=== PATIENT | male | born 1940 | race Caucasian/White ===

== ENCOUNTER → 2016-05-10 | Outpatient (REF) | payer OTHER ==
[~2016-05-10] MED LIST: /FEXO18TA; /WARF5TA; ALLO300T; AVAP75TA5; CARV6.25; FLON0.05; GLIP5TAB20; GLUC500T; PERC5TAB8; PROS5TAB; SIMV20TA2; THERGRAN; TRIC145T19
== END ==
LOC: M LAB REF 16:52
PROVIDERS: ATTEND Internal Medicine Nephrology
DX: D50.9 Iron deficiency anemia, unspecified (principal)

== ENCOUNTER 2016-05-23 09:35 | Outpatient (CLI) | payer OTHER ==
[~2016-05-23] VITALS: Ht 166.4 cm; Wt 114.5 kg
[~2016-05-23 09:35] MED LIST changes: +IRON SUCROSE 25 MG in NS 50 ML IV ONE
[2016-05-23] MEDS ORDERED: IRON SUCROSE 475 MG in NS 250 ML IV ONE (10:00)
[2016-05-23] MEDS ORDERED: diphenhydrAMINE 25 MG CAP PO ONE (11:00)
[2016-05-23] MEDS ORDERED: DOXY100C PO (15:01)
[2016-05-23] MEDS ORDERED: FERR150C PO (15:01)
[2016-05-23] MEDS ORDERED: INSULADS SC (15:03)
[2016-05-23] MEDS ORDERED: INSUNSD SC (15:03)
[2016-05-23] MEDS ORDERED: CLAR10CA3 PO (15:04)
[2016-05-23] MEDS ORDERED: MAGN1TAB25 PO (15:04)
[2016-05-23] MEDS ORDERED: TORS10TA3 PO (15:05)
[2016-05-23] MEDS ORDERED: OMEP40CA2 PO (15:05)
[2016-05-23] MEDS ORDERED: VITA200016 PO (15:06)
== END 2016-05-23 14:30 | disposition home or self-care (01) ==
LOC: M INFU 09:35
PROVIDERS: ATTEND Internal Medicine Nephrology
DX: D50.9 Iron deficiency anemia, unspecified (principal); Z88.8 Allergy status to other drugs, medicaments and biological substances; I48.91 Unspecified atrial fibrillation; G47.30 Sleep apnea, unspecified; F03.90 Unspecified dementia, unspecified severity, without behavioral disturbance, psychotic disturbance, mood disturbance, and anxiety; K21.9 Gastro-esophageal reflux disease without esophagitis; E78.5 Hyperlipidemia, unspecified; I10 Essential (primary) hypertension; E11.9 Type 2 diabetes mellitus without complications; M19.90 Unspecified osteoarthritis, unspecified site; M10.9 Gout, unspecified; Z79.01 Long term (current) use of anticoagulants; Z79.4 Long term (current) use of insulin; Z79.84 Long term (current) use of oral hypoglycemic drugs
CPT/HCPCS: 96365; J1756

== ENCOUNTER → 2016-06-10 | Outpatient (CLI) | payer OTHER ==
[~2016-06-10] MED LIST changes: +CLAR10CA3 PO; +DOXY100C PO; +FERR150C PO; +INSULADS SC; +INSUNSD SC; -IRON SUCROSE 25 MG in NS 50 ML IV ONE; +MAGN1TAB25 PO; +OMEP40CA2 PO; +TORS10TA3 PO; +VITA200016 PO
[2016-06-10 12:26] LABS: BASO # 0.1 K/mm3 (0.0-0.2); BASO % 0.8 % (0.0-1.0); EOS # 0.2 K/mm3 (0.0-0.50); EOS % 3.3 % (0.0-3.0); LARGE UNSTAINED CELL # 0.1 K/mm3 (0.0-0.4); LARGE UNSTAINED CELL % 1.7 % (0.0-4.0); LYMPH # 1.6 K/mm3 (1.5-4.5); LYMPH % 21.6 % (24.0-44.0); MEAN CORPUSCULAR HEMOGLOBIN 24.8 pg (27.0-33.0); MEAN CORPUSCULAR HGB CONC 30.5 g/dl (32.0-36.5); MEAN CORPUSCULAR VOLUME 81.3 fl (80.0-96.0); MONO # 0.4 K/mm3 (0.0-0.8); MONO % 5.5 % (0.0-5.0); NEUTROPHILS # 4.8 K/mm3 (1.8-7.7); NEUTROPHILS % 67.1 % (36.0-66.0); PLATELET COUNT, AUTOMATED 215 k/mm3 (150-450); RED CELL DISTRIBUTION WIDTH 18.9 % (11.5-14.5); WHITE BLOOD COUNT 7.1 K/mm3 (4.0-10.0)
== END ==
LOC: M LAB 11:48
PROVIDERS: ATTEND Internal Medicine Nephrology
DX: N18.3 Chronic kidney disease, stage 3 (moderate) (principal); D50.9 Iron deficiency anemia, unspecified

== ENCOUNTER → 2016-06-14 | Outpatient (CLI) | payer OTHER ==
--- NOTE | 2016-06-15 09:05 | REP ---
Clinical: Colon cancer. Technique: Axial noncontrast images from the thoracic inlet to the upper abdomen with coronal and sagittal re-formations. Findings: Lung davis are relatively well aerated and demonstrate chronic age-related type changes primarily involving the lower lung davis. Small scattered nodular densities are identified - some of which appear calcified and others which are noncalcified. Largest is noted along the subpleural right upper lobe (image 42). Small calcified pleural plaques at the diaphragmatic surfaces (left greater than right) and calcified granulomata suggest chronic changes. No significant acute consolidation or mass lesion. No obvious adenopathy although evaluation is limited by the lack of contrast. Mediastinum demonstrates cardiomegaly along with atherosclerotic changes to the thoracic aorta and coronary arteries. A tubular fluid filled structure measuring approximately 8 x 4 x 7 cm inseparable from the distal esophagus extending into the mid epigastrium adjacent to the stomach and gastroesophageal junction is unchanged compared to 2010. Impression: 1. Chronic pulmonary parenchymal changes along with scattered noncalcified predominantly 1-2 mm nodular densities are appreciated as well as 7 mm right upper lobe subpleural nodule. Given the patient's history of carcinoma and the lack of prior chest CT for comparison, current examination choose to be used as baseline and follow-up in 3-6 months based on clinical information may be warranted to evaluate for metastatic disease. 2. 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 Signed by Garfield Stoll MD 06/15/2016 08:56 A
--- NOTE | 2016-06-17 08:32 | REP ---
Clinical: Ascending colon cancer. Comparison: 01/22/2010. Findings: There is a somewhat irregular circumferential mural thickening to the ascending colon at the level of the hepatic flexure (images 60 - 48) having what would be a "apple core" appearance on contrast study and is most compatible with the above mentioned ascending colon cancer. Subtle adjacent mesenteric stranding and small lymph nodes measure up to approximately 8 mm. The remainder of the small large bowel is grossly unremarkable with the exception of diverticulosis. No obvious hepatic lesions are identified although evaluation is limited by the lack of contrast enhancement. Spleen demonstrates granulomatous calcifications. Pancreas and bilateral adrenal glands are normal. Right kidney appears atrophic and bilateral renal cysts are identified measuring up to 4.5 cm lower pole right kidney and 4.3 cm lower pole left kidney. 4.8 cm fat containing ventral hernia noted. Pelvis demonstrates normal bladder and prostate/seminal vesicles. No ascites. No retroperitoneal adenopathy. No obvious intra-abdominal/pelvic metastatic lesions. A chronic tubular fluid filled structure inseparable from the distal esophagus extending to the gastroesophageal junction is unchanged and may represent duplication cyst. Skeletal structures demonstrate degenerative changes without focal osseous abnormality. Impression: 1. Irregular circumferential mural thickening to the ascending colon at the hepatic flexure compatible with neoplasm. Adjacent mesenteric lymph nodes up to 8 mm are nonspecific. 2. Atrophic right kidney with bilateral renal cysts similar to prior examination. 3. 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 Signed by Garfield Stoll MD 06/17/2016 08:23 A
== END ==
LOC: M RAD 18:27
PROVIDERS: ATTEND Student in an Organized Health Care Education/Training Program
DX: C18.2 Malignant neoplasm of ascending colon (principal); D50.0 Iron deficiency anemia secondary to blood loss (chronic); D30.01 Benign neoplasm of right kidney; N28.1 Cyst of kidney, acquired

== ENCOUNTER 2016-06-28 08:34 | Emergency (ER) | payer OTHER ==
[~2016-06-28] VITALS: Ht 172.7 cm; Wt 104.3 kg
[2016-06-28] MEDS ORDERED: FINA5TAB2 (08:58)
[2016-06-28] MEDS ORDERED: FENO150C PO (08:58)
[2016-06-28] MEDS ORDERED: DOXY50CA (08:58)
[2016-06-28] MEDS ORDERED: AMIT25TA (08:58)
[2016-06-28] MEDS ORDERED: FLUT1SPR2 (08:58)
[2016-06-28] MEDS ORDERED: WARF-20 (08:58)
[2016-06-28 10:04] LABS: BASO % 0.4 % (0.0-1.0); EOS # 0.4 K/mm3 (0.0-0.50); EOS % 5.1 % (0.0-3.0); LARGE UNSTAINED CELL # 0.1 K/mm3 (0.0-0.4); LARGE UNSTAINED CELL % 1.5 % (0.0-4.0); LYMPH # 1.7 K/mm3 (1.5-4.5); LYMPH % 20.6 % (24.0-44.0); MEAN CORPUSCULAR HEMOGLOBIN 25.4 pg (27.0-33.0); MEAN CORPUSCULAR HGB CONC 31.8 g/dl (32.0-36.5); MEAN CORPUSCULAR VOLUME 79.9 fl (80.0-96.0); MONO # 0.4 K/mm3 (0.0-0.8); MONO % 5.3 % (0.0-5.0); NEUTROPHILS # 5.1 K/mm3 (1.8-7.7); NEUTROPHILS % 67.2 % (36.0-66.0); PLATELET COUNT, AUTOMATED 216 k/mm3 (150-450); RED CELL DISTRIBUTION WIDTH 18.9 % (11.5-14.5); WHITE BLOOD COUNT 7.6 K/mm3 (4.0-10.0)
[2016-06-28 10:18] LABS: INR 1.15
[2016-06-28 10:31] LABS: ALBUMIN 2.9 GM/DL (3.2-5.2); ALBUMIN/GLOBULIN RATIO 0.76 (1.00-1.93); BILIRUBIN,DIRECT 0.2 MG/DL (0.0-0.2); BILIRUBIN,TOTAL 0.3 MG/DL (0.2-1.0); CALCIUM LEVEL 9.1 MG/DL (8.8-10.2); CREATININE FOR GFR 1.98 MG/DL (0.70-1.30); GLOMERULAR FILTRATION RATE 35.1 (>42); POTASSIUM SERUM 3.9 MEQ/L (3.5-5.1); TOTAL PROTEIN 6.7 GM/DL (6.4-8.2)
--- NOTE | 2016-06-28 11:58 | REP ---
CT ABDOMEN AND PELVIS WITHOUT CONTRAST: CT abdomen and pelvis performed without oral or IV contrast. This limits the exam. Sagittal and coronal reconstruction images are performed. The patient had a recent resection of a segment of colon. Comparison is made with a prior study of 06/14/2016 The visualized lung bases demonstrate chronic fibrotic change and calcified pleural plaques. The liver demonstrates a questionable hypodense nodule in the inferior right lobe measuring 1.4 cm in diameter. Multiple calcified granulomas are seen in the spleen. A small left adrenal nodule is stable since 2008 compatible with a small adenoma. The pancreas is grossly unremarkable. There are multiple bilateral renal cysts. There is right renal atrophy. There is no hydroureteronephrosis. The urinary bladder is distended with a small amount of air likely from recent catheterization. Mild scattered free fluid is seen in the abdomen and pelvis. There is also mild intraperitoneal air, which is postsurgical. A tiny amount of air is seen in the umbilical soft tissues and there is also a small amount of focal fluid at that location measuring 3.1 x 2.4 cm. No gross bowel wall thickening is seen. Old tubular structure at the gastroesophageal junction is stable. There are scattered atherosclerotic calcifications of the abdominal aorta. There is no aneurysm. There is no pelvic mass. IMPRESSION: There has been recent resection of a portion of colon and there is mild postsurgical intraperitoneal air and mild scattered free fluid throughout the abdomen and pelvis. There is also mild air in the umbilical soft tissues with mild focal fluid in the umbilical soft tissues measuring 3.1 x 2.4 cm. Possible nodule in the inferior right lobe of the liver 1.4 cm in diameter. No other evidence of acute finding. The liver nodule could be further characterized by CT or MRI with contrast. Signed by Avtar West MD 06/28/2016 04:38 P
[2016-06-28 13:05] VITALS: BP 166/77
== END 2016-06-28 13:32 | disposition home or self-care (01) ==
LOC: EDBD 08:34 → M ED 09:15
DX: T81.89XA Other complications of procedures, not elsewhere classified, initial encounter (principal); R18.8 Other ascites; Y83.6 Removal of other organ (partial) (total) as the cause of abnormal reaction of the patient, or of later complication, without mention of misadventure at the time of the procedure; Z79.01 Long term (current) use of anticoagulants

== ENCOUNTER → 2016-07-22 | Outpatient (REF) | payer OTHER ==
[~2016-07-22] MED LIST changes: +AMIT25TA; +DOXY50CA; +FENO150C PO; +FINA5TAB2; +FLUT1SPR2; +WARF-20
[2016-07-22 14:12] LABS: INR 1.62
== END ==
LOC: M LAB REF 13:36
PROVIDERS: ATTEND Internal Medicine Medical Oncology
DX: C18.9 Malignant neoplasm of colon, unspecified (principal); Z51.89 Encounter for other specified aftercare

== ENCOUNTER → 2016-11-11 | Outpatient (REF) | payer OTHER ==
[2016-11-11 14:08] LABS: BACTERIA, URINE SMALL AMOUNT; COMPLEMENT C4 19.6 MG/DL (10-40); HYALINE CAST, URINE NONE SEEN /lpf (0-1); MICROSCOPIC EXAM PERFORMED; RBC, URINE 0-1 /hpf (0-3); SQUAMOUS EPITHELIAL CELL URINE NONE SEEN /hpf (SMALL AMT); WBC, URINE 30-40 /hpf (0-3)
== END ==
LOC: M LAB REF 12:45
PROVIDERS: ATTEND Internal Medicine Nephrology
DX: R80.9 Proteinuria, unspecified (principal)

== ENCOUNTER → 2016-12-19 | Outpatient (CLI) | payer OTHER ==
[~2016-12-19] MED LIST changes: +GASTROGRAFIN SOLUTION 30ML (Q9963) As Ordered ONE; +ISOVUE-370 76% 100ML VIAL (Q9967) As Ordered ONE
--- NOTE | 2016-12-20 05:25 | REP ---
Clinical: Colon cancer for restaging. Technique: Axial contrast enhanced images from the thoracic inlet to the upper abdomen using 100 ml Isovue 370 intravenous contrast material with coronal and sagittal re-formations. Comparison: 06/14/2016. Findings: Chronic-appearing interstitial changes are appreciated throughout the bilateral lung davis innumerable small subpleural densities are appreciated bilaterally including 8 mm subpleural nodule in the lateral aspect of the right upper lobe (image 46) and partially calcified basilar nodules up to roughly 11 mm in the right base. Posterior basilar dependent changes are appreciated. No focal consolidation or further mass lesion is appreciated. No pleural effusion. No pneumothorax. Tracheobronchial tree is patent. No obvious, significant axillary, hilar, or mediastinal adenopathy. Atherosclerotic changes to the thoracic aorta and coronary arteries noted without aortic aneurysm/dissection or pericardial effusion. Mild cardiomegaly is suggested and unchanged. Musculoskeletal structures suggest diffuse age-related changes. Limited evaluation of the upper abdomen suggests stable large hiatal hernia versus distal esophageal duplication cyst in the region of the gastroesophageal junction (images 75 - 95). Normal bilateral adrenal glands are identified along with chronic changes to the bilateral kidneys. Impression: 1. Small scattered bilateral subpleural nodular densities as well as 8 mm subpleural right upper lobe nodule remain essentially unchanged along with underlying chronic appearing interstitial changes and scattered calcified granulomata. Findings are nonspecific in the setting of known carcinoma. Continued follow-up at 9-12 months may be warranted. 2. Stable findings to suggest chronic mild cardiomegaly and mild pulmonary vascular congestion/dependent changes. No adenopathy or acute mediastinal / pleuroparenchymal process identified. 3. Stable cystic appearing lesion in the region of the gastroesophageal junction unchanged compared to 2010. Signed by Garfield Stoll MD 12/20/2016 05:16 A
--- NOTE | 2016-12-20 05:45 | REP ---
Clinical: History of colon cancer for restaging. Technique: Axial contrast enhanced images from the lung bases to the pubic symphysis using oral and 100 ml Isovue 370 intravenous contrast material with precontrast and delayed images of the abdomen as well as coronal and sagittal re-formations. Comparison: 06/28/2016, 06/14/2016. Findings: Lung bases demonstrate chronic-appearing interstitial changes along with few calcified granulomata and suspected cardiomegaly. 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 Liver, spleen, pancreas, bilateral adrenal glands are normal. Splenic calcifications suggest prior granulomas disease. Kidneys demonstrate age-related cortical atrophic changes (right greater than left) and bilateral cysts measuring up to approximately 4.7 cm. The enteric system is without obstruction or acute inflammatory process colonic diverticulosis noted without acute diverticulitis. Partial resection in the region of the hepatic flexure is identified without adjacent recurrence or adenopathy and no obvious evidence for complication. A midline periumbilical hernia contains nonobstructed loop of small bowel. Pelvis demonstrates partially collapsed bladder as well as small amount of free fluid in the vesiculorectal space which remains essentially stable. Small scattered lymph nodes within the abdomen and retroperitoneum are nonspecific. Atherosclerotic changes of the aorta and vasculature noted without aneurysm. Musculoskeletal structures demonstrate stable advanced degenerative changes without focal osseous abnormality. Impression: 1. Evidence of prior resection at the hepatic flexure without evidence for associated recurrence or complication. 2. Small amount of stable free fluid in the pelvis and scattered nonspecific lymph nodes are unchanged. 3. Periumbilical hernia containing nonobstructed loop of small bowel. 4. Chronic age-related changes to the kidneys with associated simple cysts up to 4.7 cm. 5. Colonic diverticulosis without acute diverticulitis. 6. 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 7. Further chronic changes as described above without acute abdominopelvic pathology otherwise noted. Signed by Garfield Stoll MD 12/20/2016 05:37 A
== END ==
LOC: M RAD 12:03
PROVIDERS: ATTEND Surgery
DX: R91.1 Solitary pulmonary nodule (principal); K42.9 Umbilical hernia without obstruction or gangrene; N28.1 Cyst of kidney, acquired; K57.90 Diverticulosis of intestine, part unspecified, without perforation or abscess without bleeding; K22.8 Other specified diseases of esophagus; Z85.038 Personal history of other malignant neoplasm of large intestine
CPT/HCPCS: 71260; 74178; Q9963; Q9967

== ENCOUNTER → 2016-12-27 | Outpatient (REF) | payer OTHER ==
[~2016-12-27] MED LIST changes: -GASTROGRAFIN SOLUTION 30ML (Q9963) As Ordered ONE; -ISOVUE-370 76% 100ML VIAL (Q9967) As Ordered ONE
== END ==
LOC: M LABDRAW1 14:29
PROVIDERS: ATTEND Physician Assistant
DX: Z12.5 Encounter for screening for malignant neoplasm of prostate (principal)
CPT/HCPCS: 36415; G0103

== ENCOUNTER → 2017-03-16 | Outpatient (REF) | payer OTHER ==
[2017-03-16 18:55] LABS: FOLATE 18.7 NG/ML
[2017-03-16 18:56] LABS: PERCENT SATURATION 11.8 % (19.7-50.0)
== END ==
LOC: M LAB REF 17:28
PROVIDERS: ATTEND Internal Medicine Nephrology
DX: D50.9 Iron deficiency anemia, unspecified (principal)

== ENCOUNTER → 2017-07-12 | Outpatient (REF) | payer OTHER ==
[2017-07-14 11:05] LABS: CARCINOEMBRYONIC ANTIGEN 3.4 NG/ML (<2.5)
== END ==
LOC: M LABDRAW1 15:47
DX: C18.9 Malignant neoplasm of colon, unspecified (principal)
CPT/HCPCS: 82378

== ENCOUNTER → 2017-11-17 | Outpatient (CLI) | payer OTHER ==
[~2017-11-17] MED LIST changes: -/FEXO18TA; -/WARF5TA; -ALLO300T; -AMIT25TA; -AVAP75TA5; -CARV6.25; -CLAR10CA3 PO; -DOXY100C PO; -DOXY50CA; -FENO150C PO; -FERR150C PO; -FINA5TAB2; -FLON0.05; -FLUT1SPR2; +GASTROGRAFIN SOLUTION 30ML (Q9963) As Ordered; -GLIP5TAB20; -GLUC500T; -INSULADS SC; -INSUNSD SC; +ISOVUE-370 76% 100ML VIAL (Q9967) As Ordered; -MAGN1TAB25 PO; -OMEP40CA2 PO; -PERC5TAB8; -PROS5TAB; -SIMV20TA2; -THERGRAN; -TORS10TA3 PO; -TRIC145T19; -VITA200016 PO; -WARF-20
== END ==
LOC: M RAD 12:51
DX: Z85.038 Personal history of other malignant neoplasm of large intestine (principal); R97.0 Elevated carcinoembryonic antigen [CEA]; R91.8 Other nonspecific abnormal finding of lung field; N28.1 Cyst of kidney, acquired
CPT/HCPCS: Q9963

== ENCOUNTER → 2017-12-29 | Outpatient (REF) | payer OTHER ==
[2017-12-29 16:15] LABS: PROSTATIC SPECIFIC AG MONITOR 0.01 NG/ML (< 4.0)
== END ==
LOC: M LABDRAW1 15:40
DX: Z12.5 Encounter for screening for malignant neoplasm of prostate (principal)
CPT/HCPCS: 84153

== ENCOUNTER → 2018-01-02 | Outpatient (CLI) | payer OTHER | LOC: M PLARAD 11:56 | DX: R91.1 Solitary pulmonary nodule (principal); Z85.038 Personal history of other malignant neoplasm of large intestine | CPT/HCPCS: 78815 ==

== ENCOUNTER → 2018-08-06 | Outpatient (REF) | payer OTHER ==
[~2018-08-06] MED LIST changes: +/FEXO18TA; +ALLO300T; +AMIT25TA; +AVAP75TA5; +CARV6.25; +CLAR10CA3 PO; +COUM1TAB17; +DOXY100C PO; +DOXY50CA; +FENO150C PO; +FERR150C PO; +FINA5TAB2; +FLON0.05; +FLUT1SPR2; -GASTROGRAFIN SOLUTION 30ML (Q9963) As Ordered; +GLIP5TAB20; +GLUC500T; +INSULADS SC; +INSUNSD SC; -ISOVUE-370 76% 100ML VIAL (Q9967) As Ordered; +MAGN1TAB26 PO; +OMEP40CA2 PO; +PERC5TAB8; +PROS5TAB; +SIMV20TA2; +THERGRAN; +TORS10TA3 PO; +TRIC145T19; +VITA200016 PO; +WARF-20
[2018-08-06 18:49] LABS: APPEARANCE, URINE CLOUDY (CLEAR); BACTERIA, URINE AUTO 2+ (NEGATIVE); BILIRUBIN, URINE AUTO NEGATIVE (NEGATIVE); BLOOD, URINE BLOOD NEGATIVE (NEGATIVE); COLOR, URINE YELLOW (YELLOW); GLUCOSE, URINE (UA) AUTO 1+ mg/dL (NEGATIVE); KETONE, URINE AUTO NEGATIVE (NEGATIVE); LEUKOCYTE ESTERASE, URINE AUTO 3+ (NEGATIVE); MUCUS, URINE SMALL (NEGATIVE); NITRITE, URINE AUTO NEGATIVE (NEGATIVE); PROTEIN, URINE AUTO 2+ mg/dL (NEGATIVE); RBC, URINE AUTO 0 /HPF (0-3); SQUAMOUS EPITHELIAL CELL UR AU 0 /HPF (0-6); UROBILINOGEN, URINE AUTO 0.2 mg/dL (0.0-2.0); WBC, URINE AUTO TNTC /HPF (0-3)
== END ==
LOC: M LAB REF 17:51
PROVIDERS: ATTEND Internal Medicine Nephrology
DX: N18.3 Chronic kidney disease, stage 3 (moderate) (principal); N31.2 Flaccid neuropathic bladder, not elsewhere classified; N39.0 Urinary tract infection, site not specified

== ENCOUNTER → 2018-11-02 | Outpatient (REF) | payer OTHER | LOC: M LAB REF 17:10 | PROVIDERS: ATTEND Internal Medicine | DX: R19.7 Diarrhea, unspecified (principal) ==

== ENCOUNTER 2018-11-29 13:18 | Outpatient (RCR) | payer MEDICARE ==
[~2018-11-29] VITALS: Ht 163.8 cm; Wt 5.5 kg
[2018-11-29] MEDS ORDERED: SYMB80INH INH (14:17)
[2018-11-29] MEDS ORDERED: ZYLO300T6 PO (14:17)
[2018-11-29] MEDS ORDERED: TRAM50TA2 PO (14:17)
[2018-11-29] MEDS ORDERED: SIMV40TA2 PO (14:17)
[2018-11-29] MEDS ORDERED: MULTCAP PO (14:17)
[2018-11-29] MEDS ORDERED: CARV6.25 PO (14:17)
[2018-11-29] MEDS ORDERED: [UNRECOGNIZED DRUG - CODE] (14:17)
[2018-11-29 14:18] VITALS: BP 98/64
[2018-11-29 15:53] LABS: HEMATOCRIT 42.3 % (42.0-52.0); HEMOGLOBIN 13.3 g/dl (13.5-17.5); LYMPH % 41.9 % (24.0-44.0); MEAN CORPUSCULAR HEMOGLOBIN 26.2 pg (27.0-33.0); MEAN CORPUSCULAR HGB CONC 31.4 g/dl (32.0-36.5); MEAN CORPUSCULAR VOLUME 83.2 fl (80.0-96.0); NEUTROPHILS # 3.5 10^3/uL (1.8-7.7); NEUTROPHILS % 50.8 % (36.0-66.0); RED BLOOD COUNT 5.08 10^6/uL (4.30-6.10); WHITE BLOOD COUNT 6.8 10^3/uL (4.0-10.0)
[2018-11-29 16:03] LABS: ALBUMIN 3.1 GM/DL (3.5-5.2); CREATININE FOR GFR 2.86 MG/DL (0.90-1.30); GLOMERULAR FILTRATION RATE 22.8 (>35); TOTAL PROTEIN 7.6 GM/DL (6.4-8.3)
--- NOTE | 2018-11-30 10:52 | MEDONC ---
MEDICAL ONCOLOGY INITIAL VISIT DATE OF SERVICE: 11/29/2018 DIAGNOSIS: Suspected recurrent colon cancer involving liver metastases seen on liver ultrasound in the setting of reported elevated CEA in a patient with history of right-sided colon cancer status post right laparoscopic colectomy May 2016. REFERRING PHYSICIAN: Delvin Grady MD HISTORY OF PRESENT ILLNESS: Mr. Pickard is an 78-year-old man, quite infirm, hard of hearing with multiple medical problems, who is a very poor historian. Today, unfortunately, I lack sufficient oncology records to confirm details of his diagnosis but it appears he underwent colonoscopy 06/02/2016; a moderately differentiated adenocarcinoma was identified in the ascending colon. On 06/24/2016, he underwent laparoscopic colectomy and repair of incarcerated umbilical hernia. He has been followed by Dr. Randy Meredith since. He was last had scans in 2018, which were negative for recurrent disease. On 01/02/2018, PET here at [facility] showed a left lower lobe nodule with no FDG accumulation, some mildly hypermetabolic normal sized bilateral hilar and right superior mediastinal lymph nodes nonspecific. No other suspicious findings and no [place] granulomatous changes such as sarcoidosis in the differential. The patient and his are the primary sources of information today. They are tangential historians. His perseverating on the many appointments her goes to. But I glean he had a CEA tested recently, which may have been elevated (in May 2017 it was 3.4) prompting a liver ultrasound done at [facility] 11/09/2018. This showed multiple hyperechoic solid masses throughout the liver largest in the inferior right lobe 6 x 5.9 x 5.8 cm. No intrahepatic biliary dilatation. Some dilated portal vein up to 22 mm with poor flow, with an echogenic thrombus seen throughout the portal vein, although some flow seen in the splenic vein. Common bile duct 7 mm. Spleen enlarged 17 cm. Overall findings suspicious for new metastatic lesions of the liver largest up to 6 cm and a thrombosed portal vein with poor flow. Mr. Pickard is anticoagulated on warfarin. He is extremely hard of hearing and has a difficult time answering most questions, difficulty focusing on the question itself, turns to his for most answers. They recount he fell recently but was "okay." The entirety of today's visit was taken up with trying to clarify the history and discussing the patient's wishes with respect to working up the suspected liver metastases. PAST MEDICAL HISTORY: Type 2 diabetes, gout, atrial fibrillation, familial tremor, urinary retention, colon cancer. PAST SURGICAL HISTORY: Cholecystectomy, left total knee replacement, right total knee replacement, parotid gland duct stent, right eye cataract, right laparoscopic colectomy, abdominal hernia repair 2018. MEDICATIONS: - allopurinol 300 mg daily - amitriptyline 25 mg daily - budesonide b.i.d. - carvedilol 6.25 mg daily - vitamin D daily - fenofibrate 160 mg daily - finasteride 5 mg daily - fluticasone - insulin glargine 30 units q.p.m. - insulin human NPH 10 units q.a.m. - iron polysaccharide complex 150 mg daily - loratadine 10 mg daily - magnesium oxide 400 mg daily - multivitamin daily - omeprazole 40 mg daily - simvastatin 40 mg daily - torsemide 10 mg daily - tramadol 50 mg as needed t.i.d. - warfarin 4 mg daily ALLERGIES: NSAIDS, LOSARTAN, TOMATO. REVIEW OF SYSTEMS: 12 system written review completed by the patient is positive for recent weight loss, change in appetite, recent fatigue, shortness of breath with exertion, difficulty breathing, cough, heartburn, change in bowel habits, urinary difficulties, "bladder does not work", self catheterizes, bruising, nosebleeds everyday. LABORATORY DATA: WBC 6.8, hemoglobin 13, hematocrit 42, platelets 225, MCV 83. Electrolytes normal. BUN 79, creatinine 2.86, calcium 10.8, albumin 3.1, alk phos 162, AST 344, ALT 47. CEA pending. Frail elderly gentleman with a history of colon cancer 2017 status post right-sided colectomy now with apparent new metastatic masses in the liver up to 6 cm, acute on chronic renal insufficiency, multiple complex medical problems, ECOG performance status 3. PLAN/RECOMMENDATIONS: 1. After a lengthy discussion with Mr. Pickard and his about whether to pursue a liver biopsy to identify and confirm the cancer as having returned and possibly check MMR status for suitability for immunotherapy versus getting scans, the patient elected for scans only. Will get chest, abdomen and pelvis CTs and see the patient back after these are complete. 2. I asked Mr. Pickard and his if possible for them to bring their daughter who is healthcare proxy or their local daughter so that one of the family members could firsthand here the information and recommendations and participate given the frailty of both And Mrs. Pickard. 3. I gave my cell number to Mrs. Pickard to pass onto her daughter who is healthcare proxy for Mr. Pickard. TIME STATEMENT: 60 minutes [id number] with the patient more than 50% involving counseling, answering questions, outlining a plan of action. ADDENDUM: I did during the course of our discussion today raised the question of palliative care and hospice care with Mr. Pickard and his . They were shocked when I mentioned hospice care. They have had personal experience with someone who worked in hospice, became quite tangential during the discussion and so we tabled this but I explained his life expectancy if the liver lesions are metastatic colon cancer is likely less than 6 months, and his performance status will not be appropriate for chemotherapy treatment. Electronically Signed by Kristi Juan MD 11/30/2018 05:17 P DD: Kristi Juan MD 11/29/2018 05:32 P DT: sherley 11/30/2018 10:10 A CC: MD Randy Fletcher MD
== END 2018-11-29 14:00 | disposition home or self-care (01) ==
LOC: M ONCM 13:18
PROVIDERS: ATTEND Internal Medicine Medical Oncology
DX: C78.7 Secondary malignant neoplasm of liver and intrahepatic bile duct (principal); Z85.038 Personal history of other malignant neoplasm of large intestine; E11.9 Type 2 diabetes mellitus without complications; I48.91 Unspecified atrial fibrillation; G25.0 Essential tremor; M10.9 Gout, unspecified; R33.9 Retention of urine, unspecified; Z79.4 Long term (current) use of insulin; Z79.01 Long term (current) use of anticoagulants; Z79.899 Other long term (current) drug therapy; Z88.8 Allergy status to other drugs, medicaments and biological substances; Z91.018 Allergy to other foods
CPT/HCPCS: 36415; 80053; 82378; 85027; G0463

== ENCOUNTER 2018-12-07 12:58 | Emergency (ER) | payer MEDICARE ==
[~2018-12-07] VITALS: Ht 172.7 cm; Wt 98.6 kg
[~2018-12-07 12:58] MED LIST changes: +CARV6.25 PO; +MULTCAP PO; +SIMV40TA2 PO; +SYMB80INH INH; +TRAM50TA2 PO; +ZYLO300T6 PO; +[UNRECOGNIZED DRUG - CODE]
[2018-12-07] MEDS ORDERED: MORPHINE 4 MG/ML 1ML VIAL/SYRINGE (J2270) IV ONE ×2 (14:00→16:15)
[2018-12-07] MEDS ORDERED: ONDA4TAB6 PO ×2 (15:27→16:11)
[2018-12-07] MEDS ORDERED: SCOP1PAT2 TOP ×2 (15:27→15:45)
[2018-12-07] MEDS ORDERED: commode (15:27)
[2018-12-07] MEDS ORDERED: MORP20SO PO ×2 (15:27→16:11)
[2018-12-07] MEDS ORDERED: LORA2CON5 PO ×2 (15:27→15:45)
[2018-12-07 17:02] VITALS: BP 100/59
== END 2018-12-07 17:05 | disposition home or self-care (01) ==
LOC: M ED 12:58 → EDBD 12:58 → M ED 17:05
DX: C18.9 Malignant neoplasm of colon, unspecified (principal); C78.7 Secondary malignant neoplasm of liver and intrahepatic bile duct; Z88.8 Allergy status to other drugs, medicaments and biological substances; Z91.018 Allergy to other foods; Z79.899 Other long term (current) drug therapy
CPT/HCPCS: 96374; 96375; 99284; J2270